=== PATIENT | female | born 1950 | race Caucasian/White ===

== ENCOUNTER → 2020-01-24 | Outpatient (CLI) | payer OTHER ==
[2014-11-12 18:00] VITALS: BP 147/61
--- NOTE | 2020-01-24 11:26 | KCIC ---
Bilateral digital screening mammograms: Reason for examination: Routine screening. Comparison is made to previous study dated Interpretation was made with the benefit of CAD. The skin and nipples show no abnormalities. No abnormal axillary lymph nodes are seen. The breast parenchyma is heterogeneously dense. (Breast density: Category C.) There are nodular asymmetries at the 9:00 B position of the right breast and 3:00 B and 3:00 A positions of the left breast. Further evaluation with ultrasound is recommended. There is also some nodularity with calcifications seen in the right breast on cc view possibly at the 12:00 B position. Recommend further evaluation with coned compression magnification views in CC and true lateral projections. Impression: Nodular densities seen bilaterally probably at the 9:00 B position of the right breast and 3:00 A and B positions of the left breast. Recommend further evaluation with ultrasound. Small cluster of calcifications seen in the right breast on cc view probably at the 12:00 B position. Recommend further evaluation with coned magnification views in CC and true lateral projections. Your patient's mammogram demonstrates that she has dense breast tissue (breast density category C or D), which could hide abnormalities, and if she has other risk factors for breast cancer that have been identified, she might benefit from supplemental screening tests that may be suggested by you as her ordering physician. Dense breast tissue, in and of itself, is a relatively common condition. Therefore, this information is not provided to cause undue concern, but rather to raise your awareness and to promote discussion with your patient regarding the presence of other risk factors, in addition to dense breast tissue. Your patient's mammography results will be sent to her. BI-RAD Category 0: Incomplete. Needs additional imaging evaluation. "Our facility is accredited by the [employer] Mammography [employer]." This patient's information has been entered into a reminder system for the patient to be notified with the results of her examination and a target date for the next mammogram. Electronically signed by: Noelle Barth MD (01/24/2020 11:23 AM) [id number]
== END | disposition home or self-care (01) ==
LOC: KCIC MAMMO 09:48
PROVIDERS: ATTEND Family Medicine
DX: Z12.31 Encounter for screening mammogram for malignant neoplasm of breast (principal); N64.89 Other specified disorders of breast
CPT/HCPCS: 77067

== ENCOUNTER → 2020-02-08 | Outpatient (CLI) | payer MEDICARE ==
[2014-11-12 18:00] VITALS: BP 147/61
--- NOTE | 2020-02-08 15:53 | KCIC ---
Right breast diagnostic digital mammograms: Reason for examination: Right breast calcifications on screening mammogram. Coned magnification views were obtained of the right breast with attention to the calcifications seen mammographically in the central right breast. There are punctate benign-appearing calcifications present which probably reflect adenosis. No suspicious branching calcifications are identified. Reevaluation with mammograms in 6 months is recommended. IMPRESSION: Probably benign calcifications in the central right breast. Recommend 6 month follow-up. BI-RADS Category 3: Probably Benign. Bilateral breast ultrasound: Reason for examination: Nodular densities on screening mammogram. Ultrasound examination was performed bilaterally in the areas of mammographic concern. In the right breast at the 9:00 position 5 cm from the nipple, there is some cystic ductal ectasia. In the retroareolar position, there is ductal ectasia. At the 8:00 position 5 cm from the nipple, there appears to be a 5.5 mm hypoechoic circumscribed lesion probably representing a complicated cyst. No other cystic or solid nodules are seen. In the left breast at the 2:00 position 6 cm from the nipple, there is a small 6.8 mm hypoechoic circumscribed lesion consistent with a complicated cyst. There is ductal ectasia in the retroareolar 6:00 position. No suspicious nodules are seen. IMPRESSION: Benign appearing hypoechoic nodules probably representing complicated cysts. No suspicious abnormality seen. Recommend 6 month follow-up with ultrasound examinations. BI-RADS Category 3: Probably Benign. "Our facility is accredited by the [employer] Mammography [employer]." This patient's information has been entered into a reminder system for the patient to be notified with the results of her examination and a target date for the next mammogram. Electronically signed by: Noelle Barth MD (02/08/2020 3:50 PM) [email or web address]
== END | disposition home or self-care (01) ==
LOC: KCIC MAMMO 12:56
PROVIDERS: ATTEND Family Medicine
DX: R92.1 Mammographic calcification found on diagnostic imaging of breast (principal)
CPT/HCPCS: 76641; 77065

== ENCOUNTER → 2020-11-29 | Outpatient (CLI) | payer MEDICARE ==
[2014-11-12 18:00] VITALS: BP 147/61
--- NOTE | 2020-11-29 12:54 | KCIC ---
Bilateral diagnostic digital mammograms: Reason for examination: Follow-up calcifications and follow-up nodules. Comparison is made to previous studies dated 02/08/2020 and 01/24/2020. Interpretation was made with the benefit of CAD. The skin and nipples show no abnormalities. No abnormal axillary lymph nodes are seen. The breast par enchyma is heterogeneously dense. (Breast density: Category C.) There continued be some calcification s at the 12:00 B position of the right breast which are stable. Small nodular densities seen previous ly appear to be stable. There are no new dominant masses, suspicious calcifications or architectural distortion. Impression: Stable right breast calcifications. Recommend follow-up at the time of bilateral mammograms in 6 estrada hs. Small nodules bilaterally. Ultrasound to follow. Your patient's mammogram demonstrates that she has dense breast tissue (breast density category C or D), which could hide abnormalities, and if she has other risk factors for breast cancer that have bee n identified, she might benefit from supplemental screening tests that may be suggested by you as her ordering physician. Dense breast tissue, in and of itself, is a relatively common condition. Therefo re, this information is not provided to cause undue concern, but rather to raise your awareness and t o promote discussion with your patient regarding the presence of other risk factors, in addition to d ense breast tissue. Your patient's mammography results will be sent to her. BI-RAD Category 0: Incomplete. Needs additional imaging evaluation. Bilateral breast ultrasound: Comparison is made to previous study dated 02/08/2020. Bilateral breast ultrasound was performed including the axilla. In the right breast, there continues to be some ductal ectasia. At the 8:00 position 5 cm from the ni pple, there continues to be a small 4.8 mm cystic lesion which is stable. No abnormal appearing lymph nodes are seen in the axilla. In the left breast at the 2:00 position 6 cm from the nipple, there continues to be a small 6.2 mm ci rcumscribed nodule which shows a slight decrease in size consistent with a probable complicated cyst. There is ductal ectasia in the retroareolar 3:00 position. No abnormal appearing lymph nodes are see n in the left axilla. IMPRESSION: Benign-appearing nodules probably representing cysts and showing slight decrease in size. No suspicio us abnormalities are seen. Recommend mammographic follow-up for the right breast calcifications. BI-RADS Category 3: Probably Benign. "Our facility is accredited by the [employer] Mammography Program." This patient's information has been entered into a reminder system for the patient to be notified wit h the results of her examination and a target date for the next mammogram. Electronically signed by: Noelle Barth MD (11/29/2020 12:52 PM) [id number]
== END ==
LOC: KCIC US 10:00
PROVIDERS: ATTEND Family Medicine
DX: R92.1 Mammographic calcification found on diagnostic imaging of breast (principal)
CPT/HCPCS: 76641; 77066